=== PATIENT | female | born 2000 | race American Indian/Alaskan Native ===

== ENCOUNTER 2019-01-14 21:24 | Emergency (ER) | payer SELFPAY ==
--- NOTE | 2019-01-14 21:50 | Event Note ---
ED Screening Note Date of service: 01/14/19 Time: 21:40 ED Screening Note: Pt complains of palpitations and anxiety x today states ongoing for months, but worsened today +chest pain, rates at a 5/10 and describes it as a pressure denies previous heart issues This initial assessment/diagnostic orders/clinical plan/treatment(s) is/are subject to change based on patients health status, clinical progression and re- assessment by fellow clinical providers in the ED. Further treatment and workup at subsequent clinical providers discretion. Patient/guardian urged not to elope from the ED as their condition may be serious if not clinically assessed and managed. Initial orders include: CXR labs
[2019-01-14 22:06] LABS: Hematocrit 39.7 % (30.3-42.9); Hemoglobin 13.1 gm/dl (10.1-14.3); Mean Corpuscular HGB Conc 33 % (30-34); Mean Corpuscular Volume 86 fl (79-97); Platelet Count 257 K/mm3 (140-440); Red Blood Count 4.59 M/mm3 (3.65-5.03)
[2019-01-14 22:27] LABS: BUN/Creatinine Ratio 17; Blood Urea Nitrogen 10 mg/dL (7-17); Calcium 9.8 mg/dL (8.4-10.2); Hemolysis Index 0
--- NOTE | 2019-01-14 23:35 | XRay Report ---
CHEST 2 VIEWS INDICATION / CLINICAL INFORMATION: chest pain, palpitations. COMPARISON: None available. FINDINGS: SUPPORT DEVICES: None. HEART / MEDIASTINUM: No significant abnormality. LUNGS / PLEURA: No significant pulmonary or pleural abnormality. No pneumothorax. ADDITIONAL FINDINGS: Mild scoliosis is present. IMPRESSION: 1. No acute pulmonary or pleural disease. 2. Mild scoliosis. Signer Name: Lisa Abbott MD Signed: 01/14/2019 11:30 PM Workstation Name: [id number]
--- NOTE | 2019-01-14 23:59 | Emergency Department Report ---
ED Psych HPI - General Chief Complaint: Arrhythmia/Palpitations Stated Complaint: LIGHT HEADED, CHEST PAIN Time Seen by Provider: 01/14/19 21:39 Source: patient Mode of arrival: Ambulatory - History of Present Illness Initial Comments: Mrs. 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 States she is afraid to be alone because of thinking that she will , however patient denies suicidal ideation or homicidal ideation. Pt states symptoms have exacerbated over the past month. Patient has no plan but is requesting to speak to a psychiatrist for fear of impending . Patient denies substance ,denies EtOH, there is no fever, no chills, no nausea /vomiting. Her last menstrual period is now. Patient has not seen a psychiatrist as not ever taken medications for anxiey diagnoses at 16yrs old. MD Complaint: feels depressed Onset/Timin -: month(s) Associated Psychiatric Symptoms: depression, other (fear of ) History of same: Yes Quality: constant Improves With: none Worsens With: other (isolation) Context: not taking psychiatric Associated Symptoms: shortness of breath, other (palpitations , sob ) Treatments Prior to Arrival: none - Related Data Previous Rx's Medication Instructions Recorded Last Taken Type Nitrofurantoin [place]/M-Cryst 100 mg PO BID 7 Days #14 capsule 01/15/19 Unknown Rx [Macrobid CAP] Allergies Allergy/AdvReac Type Severity Reaction Status Date / Time No Known Allergies Allergy Unverified 01/14/19 21:41 ED Review of Systems ROS: Stated complaint: LIGHT HEADED, CHEST PAIN Other details as noted in HPI Constitutional: denies: chills, fever Eyes: denies: eye pain, eye discharge, vision change ENT: denies: ear pain, throat pain Respiratory: shortness of breath. denies: cough, wheezing Cardiovascular: palpitations. denies: chest pain Endocrine: no symptoms reported Gastrointestinal: denies: abdominal pain, nausea, diarrhea Genitourinary: denies: urgency, dysuria, discharge Musculoskeletal: denies: back pain, joint swelling, arthralgia Skin: denies: rash, lesions Neurological: denies: headache, weakness, paresthesias Psychiatric: anxiety, depression Hematological/Lymphatic: denies: easy bleeding, easy bruising ED Past Medical Hx - Social History Smoking Status: Never Smoker Substance Use Type: None - Medications Home Medications: Home Medications Medication Instructions Recorded Confirmed Last Taken Type Nitrofurantoin [place]/M-Cryst 100 mg PO BID 7 Days #14 capsule 01/15/19 Unknown Rx [Macrobid CAP] ED Physical Exam - General Limitations: No Limitations General appearance: alert, in no apparent distress - Head Head exam: Present: atraumatic, normocephalic - Eye Eye exam: Present: normal appearance, PERRL, EOMI Pupils: Present: normal accommodation - ENT ENT exam: Present: mucous membranes moist - Neck Neck exam: Present: normal inspection - Respiratory Respiratory exam: Present: normal lung sounds bilaterally. Absent: respiratory distress - Cardiovascular Cardiovascular Exam: Present: regular rate, normal rhythm, normal heart sounds. Absent: systolic murmur, diastolic murmur, rubs, gallop - GI/Abdominal GI/Abdominal exam: Present: soft, normal bowel sounds. Absent: distended, tenderness, guarding, rebound, rigid, bruit, hernia - Rectal Rectal exam: Present: deferred - Extremities Exam Extremities exam: Present: normal inspection, full ROM. Absent: tenderness - Back Exam Back exam: Present: normal inspection, full ROM. Absent: tenderness - Neurological Exam Neurological exam: Present: alert, oriented X3, CN II-XII intact, normal gait - Psychiatric Psychiatric exam: Present: anxious - Skin Skin exam: Present: warm, dry, intact, normal color. Absent: rash ED Course Vital Signs 01/14/19 01/14/19 21:28 21:40 Temperature 98.3 F 98.3 F Pulse Rate 114 H 98 H Respiratory 18 18 Rate Blood Pressure 144/93 144/93 O2 Sat by Pulse 100 100 Oximetry ED Medical Decision Making - Lab Data Result diagrams: 01/14/19 21:49 01/15/19 00:32 - EKG Data EKG shows normal: sinus rhythm, axis, intervals, QRS complexes, ST-T waves Rate: normal - EKG Data Interpretation: normal EKG (EKG interp be ed attending NSR No ST Elevated AL ) - Radiology Data Radiology results: report reviewed, image reviewed CXR:normal no infiltrate no opacities. - Medical Decision Making all labs noetd normal, ua; mild luek , wbc, pt remains non suicidal or homicidal, no plan, Psych evaluation completed at this time, recommended: dc to self follow up with [facility] in 1-2 days. Pt given referral to same by Psych professional, plan: dc to home rx for uti, macrobid, pt will follow up with pcp, an mental health clinic as directed , pt is currently a.o x 3, ambulatory with steady gait and nad. There is no SI or HI. Critical care attestation.: If time is entered above; I have spent that time in minutes in the direct care of this critically ill patient, excluding procedure time. ED Disposition Clinical Impression: Stress UTI (urinary tract infection) Qualifiers: Urinary tract infection type: acute cystitis Hematuria presence: without hematuria Qualified Code(s): N30.00 - Acute cystitis without hematuria Disposition: DC-01 TO HOME OR SELFCARE Is pt being admited?: No Does the pt Need Aspirin: No Condition: Stable Instructions: Stress (ED), Urinary Tract Infection in Women (ED) Prescriptions: Nitrofurantoin Coamo/M-Cryst [Macrobid CAP] 100 mg PO BID 7 Days #14 capsule Referrals: [facility] [Outside] - 2-3 Days [facility] [Outside] - 2-3 Days Forms: Work/School Release Form(ED) Time of Disposition: 02:08
--- NOTE | 2019-01-15 00:13 | Event Note ---
Date of service: 01/15/19 Face to Face: This is a 18-year-old female, not known to this provider previously, states that she is not , reports no delivery or within the past 6 weeks, denies DVT and pulmonary embolism risk factors, is low risk by well's criteria, presenting with a primary complaint of anxiety, panic attack. She denies physical pain at this time. She is not homicidal or suicidal at this time. She is clinically sober. She is not meet 1013 criteria. She endorses numerous psychosocial stressors. She is requesting to speak to a psychiatric professional. Medically speaking, she does not appear to have an emergent medical condition at this time. Physical exam unremarkable, GCS of 15. EKG shows a sinus rhythm, 91 beats for minute, normal axis, QTC 438 ms, there is motion artifact, the EKG is not consistent with ST elevation myocardial infarction. X-ray the chest unremarkable. Vital signs unremarkable, tachycardia resolved, screening laboratory studies unremarkable. Supportive care and expected management. Vital Signs 01/14/19 01/14/19 21:28 21:40 Temperature 98.3 F 98.3 F Pulse Rate 114 H 98 H Respiratory 18 18 Rate Blood Pressure 144/93 144/93 O2 Sat by Pulse 100 100 Oximetry Lab Results 01/14/19 01/14/19 01/14/19 Range/Units 21:49 21:49 21:49 WBC 7.0 (4.5-11.0) K/mm3 RBC 4.59 (3.65-5.03) M/mm3 Hgb 13.1 (10.1-14.3) gm/dl Hct 39.7 (30.3-42.9) % MCV 86 (79-97) fl MCH 28 (28-32) pg MCHC 33 (30-34) % RDW 14.0 (13.2-15.2) % Plt Count 257 (140-440) K/mm3 Sodium 137 (137-145) mmol/L Potassium 4.4 (3.6-5.0) mmol/L Chloride 102.0 (98-107) mmol/L Carbon Dioxide 21 L (22-30) mmol/L Anion Gap 18 mmol/L BUN 10 (7-17) mg/dL Creatinine 0.6 L (0.7-1.2) mg/dL Estimated GFR > 60 ml/min BUN/Creatinine Ratio 17 % Glucose 96 (65-100) mg/dL Calcium 9.8 (8.4-10.2) mg/dL Magnesium 2.00 (1.7-2.3) mg/dL Troponin T < 0.010 (0.00-0.029) ng/mL HCG, Qual Negative (Negative)
[2019-01-15 01:16] LABS: BUN/Creatinine Ratio 17; Blood Urea Nitrogen 10 mg/dL (7-17); Calcium 9.6 mg/dL (8.4-10.2); Hemolysis Index 3
[2019-01-15 01:31] LABS: Bilirubin,Urine NEG (Negative); Blood,Urine LG (Negative); Color,Urine Yellow (Yellow); Mucus,Urine FEW /HPF; Urobilinogen,Urine < 2.0 mg/dL (<2.0)
[2019-01-15 01:33] LABS: RBC,Urine > 182.0 /HPF (0.0-6.0)
[2019-01-15 01:34] LABS: HCG Qualitative,Urine Negative (Negative)
[2019-01-15 01:38] LABS: Amphetamine Screen,Urine PRESUMPTIVE NEGATIVE; Benzodiazepines Screen,Urine PRESUMPTIVE NEGATIVE; Cannabinoid Screen,Urine PRESUMPTIVE NEGATIVE; Cocaine Screen,Urine PRESUMPTIVE NEGATIVE; Methadone Screen,Urine PRESUMPTIVE NEGATIVE; Opiate Screen,Urine PRESUMPTIVE NEGATIVE
[2019-01-15 02:48] VITALS: BP 120/75
== END 2019-01-15 02:48 | disposition home or self-care (01) ==
LOC: ED 21:24
DX: F43.0 Acute stress reaction (principal); F32.9 Major depressive disorder, single episode, unspecified; R20.2 Paresthesia of skin; N39.0 Urinary tract infection, site not specified; F41.9 Anxiety disorder, unspecified
CPT/HCPCS: 36415; 71046; 80048; 80307; 80320; 81001; 81025; 82550; 82693; 83735; 84443; 84484; 84703; 85027; 93005; 93010; G0480